=== PATIENT | male | born 1950 | race Caucasian/White ===

== ENCOUNTER 2016-11-20 21:52 | Emergency (ER) | payer MEDICARE ==
[2008-05-21 00:51] VITALS: BP 151/80
[~2016-11-20] VITALS: Ht 188 cm; Wt 100.0 kg
[~2016-11-20 21:52] MED LIST: ALBUTEROL0.83 MG/ML IH; CEFACLOR; CETIRIZINE10 MG PO; EPI EZ PEN0.5 MG/ML IM; GLUCOPHAGE1000 MG PO; GUAIFENESIN; INSULIN; JANUVIA50 MG PO; LANTUS SOLOS100 U/ML SC; LANTUS100 U/ML; LEVAQUIN 250MG250 MG PO; LOPERAMIDE HCL2 MG PO; METFORMIN1000 MG PO; METFORMIN500 MG PO; NORCO 325 MG-51 TAB PO; PENICILLIN250 MG PO; PHENERGAN 25 TA25 MG PO; PREDNISONE 5MG5 MG PO; PREDNISONE10 MG; PREDNISONE10 MG PO; PREDNISONE20 MG; PREDNISONE20 MG PO; PRILOSEC10 MG PO; PROAIR HFA; PULMICORT0.25 MG/2; PULMICORT0.5 MG/21 IH; PULMICORT180 MCG/A1 IH; SEREVENT; SEREVENT IH; SIMVASTATIN40 MG PO; SINGULAIR 110 MG/TAB PO; SINGULAIR10 MG PO; ULTRAM 50MG TAB50 MG PO; VENTOLIN0.09 MG IH; XOPENEX 1.1.25 MG/3 IH; XOPENEX1.25 MG/3 IH; ZITHROMAX Z PA250 MG PO; ZOCOR 40MG40 MG PO; ZYRTEC 10MG10 MG PO; [UNRECOGNIZED DRUG - OTHER]; [UNRECOGNIZED DRUG - OTHER] IH
[2016-11-20 21:56] VITALS: TEMP 98.2
[2016-11-20] MEDS ORDERED: ULTRAM 50MG TAB50 MG PO (22:59)
[2016-11-20 23:10] VITALS: BP 128/94; PULSE 92
== END 2016-11-20 23:15 | disposition home or self-care (01) ==
LOC: COL.ER 21:52
DX: S09.90XA Unspecified injury of head, initial encounter (principal); S86.911A Strain of unspecified muscle(s) and tendon(s) at lower leg level, right leg, initial encounter; M54.2 Cervicalgia; V43.62XA Car passenger injured in collision with other type car in traffic accident, initial encounter; Y92.410 Unspecified street and highway as the place of occurrence of the external cause; E11.9 Type 2 diabetes mellitus without complications; Z79.4 Long term (current) use of insulin; R40.2362 Coma scale, best motor response, obeys commands, at arrival to emergency department; R40.2142 Coma scale, eyes open, spontaneous, at arrival to emergency department; R40.2252 Coma scale, best verbal response, oriented, at arrival to emergency department

== ENCOUNTER → 2016-11-26 | Outpatient (CLI) | payer MEDICARE | LOC: SUN.DIA | DX: E11.65 Type 2 diabetes mellitus with hyperglycemia (principal); Z79.84 Long term (current) use of oral hypoglycemic drugs; Z79.4 Long term (current) use of insulin; Z68.28 Body mass index [BMI] 28.0-28.9, adult; E11.319 Type 2 diabetes mellitus with unspecified diabetic retinopathy without macular edema; Z71.3 Dietary counseling and surveillance ==

== ENCOUNTER → 2017-02-18 | Outpatient (CLI) | payer MEDICARE | LOC: SUN.DIA 11:00 | DX: E11.65 Type 2 diabetes mellitus with hyperglycemia (principal); E11.319 Type 2 diabetes mellitus with unspecified diabetic retinopathy without macular edema; Z79.4 Long term (current) use of insulin; Z71.3 Dietary counseling and surveillance ==

== ENCOUNTER → 2017-05-27 | Outpatient (CLI) | payer MEDICARE | LOC: SUN.DIA 09:57 | DX: E11.319 Type 2 diabetes mellitus with unspecified diabetic retinopathy without macular edema (principal); Z79.4 Long term (current) use of insulin; E78.5 Hyperlipidemia, unspecified; Z68.27 Body mass index [BMI] 27.0-27.9, adult; Z71.3 Dietary counseling and surveillance | CPT/HCPCS: G0108 ==

== ENCOUNTER → 2017-09-08 | Outpatient (CLI) | payer MEDICARE | LOC: SUN.DIA 08:42 | DX: Z01.89 Encounter for other specified special examinations (principal) ==

== ENCOUNTER → 2017-09-16 | Outpatient (CLI) | payer MEDICARE | LOC: SUN.DIA 09:46 | DX: E11.319 Type 2 diabetes mellitus with unspecified diabetic retinopathy without macular edema (principal); Z79.4 Long term (current) use of insulin; E78.5 Hyperlipidemia, unspecified; Z68.26 Body mass index [BMI] 26.0-26.9, adult; Z71.3 Dietary counseling and surveillance | CPT/HCPCS: G0108 ==

== ENCOUNTER 2017-10-04 21:34 | Emergency (ER) | payer MEDICARE ==
[2008-05-21 00:51] VITALS: BP 151/80
[~2017-10-04] VITALS: Ht 188 cm; Wt 90.9 kg
[2017-10-04 21:34] VITALS: TEMP 97.7
[2017-10-04 23:19] LABS: BASO % 0.5 % (0.0-2.0); EOS # 0.1 (0.0-0.7); GRAN # 6.2 (1.4-6.5); GRAN % 71.5 % (42.2-75.2); HEMATOCRIT 43.4 % (42.0-52.0); HEMOGLOBIN 14.4 g/dl (13.5-18.0); LYMPH # 1.7 (1.2-3.4); MEAN CELL VOLUME 86 fl (80.0-100.0); MEAN CORPUSCULAR HEMOGLOBIN 29 pg (27.0-31.0); MEAN CORPUSCULAR HGB CONC 33 g/dl (33.0-37.0); MEAN PLATELET VOLUME 10.5 fl (7.4-10.4); MONO # 0.7 (0.1-0.6); MONO % 7.4 % (1.7-9.3); PLATELET COUNT 206 K/mm3 (130-400); RED BLOOD COUNT 5.03 M/mm3 (4.20-5.60); WHITE BLOOD COUNT 8.7 K/mm3 (4.8-10.8)
[2017-10-04 23:32] LABS: ADJUSTED CALCIUM 9.1 mg/dL (8.4-10.2); ALANINE AMINOTRANSFERASE 40 U/L (21-72); ALBUMIN 3.7 gm/dL (3.5-5.0); ALKALINE PHOSPHATASE 51 U/L (50-136); ANION GAP 14 mmol/L (7-16); BILIRUBIN,TOTAL 0.6 mg/dL (0.0-1.0); BLOOD UREA NITROGEN 14 mg/dL (9-20); C-REACTIVE PROTEIN < 0.5 mg/dL (0.0-0.9); CALCIUM 8.9 mg/dL (8.4-10.2); CARBON DIOXIDE 21 mmol/L (22-30); CHLORIDE 106 mmol/L (98-107); CREATININE, serum 0.92 mg/dL (0.66-1.25); GLUCOSE 180 mg/dL (74-106); POTASSIUM 3.9 mmol/L (3.4-5.0); SODIUM 141 mmol/L (137-145); TOTAL PROTEIN 5.9 gm/dL (6.4-8.2)
[2017-10-05] VITALS: BP 113/81; PULSE 94
== END 2017-10-05 00:05 | disposition home or self-care (01) ==
LOC: COL.ER 21:34
PROVIDERS: Family Medicine
DX: M79.605 Pain in left leg (principal); G89.29 Other chronic pain; E11.9 Type 2 diabetes mellitus without complications; I10 Essential (primary) hypertension; Z79.4 Long term (current) use of insulin

== ENCOUNTER → 2017-12-15 | Outpatient (CLI) | payer MEDICARE | LOC: SUN.DIA 09:18 | DX: E11.319 Type 2 diabetes mellitus with unspecified diabetic retinopathy without macular edema (principal); Z79.4 Long term (current) use of insulin; E78.5 Hyperlipidemia, unspecified; Z68.26 Body mass index [BMI] 26.0-26.9, adult; Z71.3 Dietary counseling and surveillance | CPT/HCPCS: G0108 ==

== ENCOUNTER → 2018-03-19 | Outpatient (CLI) | payer MEDICARE | LOC: SUN.DIA 12:38 | DX: E11.319 Type 2 diabetes mellitus with unspecified diabetic retinopathy without macular edema (principal); Z79.4 Long term (current) use of insulin; E78.5 Hyperlipidemia, unspecified; Z68.27 Body mass index [BMI] 27.0-27.9, adult; Z71.3 Dietary counseling and surveillance | CPT/HCPCS: G0108 ==

== ENCOUNTER → 2018-12-14 | Outpatient (CLI) | payer MEDICARE | LOC: SUN.DIA 12:58 | DX: E11.9 Type 2 diabetes mellitus without complications (principal); H35.00 Unspecified background retinopathy; Z79.4 Long term (current) use of insulin; E78.5 Hyperlipidemia, unspecified | CPT/HCPCS: G0108 ==

== ENCOUNTER → 2019-06-14 | Outpatient (CLI) | payer MEDICARE | LOC: DIA.ED 11:52 | DX: E11.9 Type 2 diabetes mellitus without complications (principal); E78.5 Hyperlipidemia, unspecified; Z79.4 Long term (current) use of insulin | CPT/HCPCS: G0108 ==

== ENCOUNTER 2019-12-29 09:59 | Inpatient (IN) | payer MEDICARE ==
[2019-12-29] VITALS: BP 120/64; PULSE 94; TEMP 99
[~2019-12-29] VITALS: Ht 177.8 cm; Wt 89.2 kg
[2019-12-29 10:54] LABS: BASO % 0.3 % (0.0-2.0); EOS # 0.2 (0.0-0.7); EOS % 2.4 % (0-4.0); GRAN % 71.4 % (42.2-75.2); HEMATOCRIT 46.5 % (42.0-52.0); HEMOGLOBIN 15.5 g/dl (13.5-18.0); LYMPH # 0.6 (1.2-3.4); LYMPH % 8.4 % (20.0-51.0); MEAN CELL VOLUME 86 fl (80.0-100.0); MEAN CORPUSCULAR HEMOGLOBIN 29 pg (27.0-31.0); MEAN CORPUSCULAR HGB CONC 33 g/dl (33.0-37.0); MEAN PLATELET VOLUME 10.6 fl (7.4-10.4); MONO # 1.2 (0.1-0.6); MONO % 16.6 % (1.7-9.3); PLATELET COUNT 147 K/mm3 (130-400); REDCELL DISTRIBUTION WIDTH-CV 13.2 % (11.5-14.5)
[2019-12-29 11:01] LABS: CALCIUM 8.2 mg/dL (8.4-10.2); CREATININE, serum 0.84 (0.66-1.25); POTASSIUM 3.4 mmol/L (3.4-5.0); TOTAL PROTEIN 6.5 gm/dL (6.4-8.2)
[2019-12-29 11:38] LABS: COLLECTION METHOD CLEAN CATCH
[2019-12-29 11:46] LABS: MUCOUS Present /lpf; PH 5 (5-8); SQUAMOUS EPITHELIAL 0-2 /hpf; URINE APPEARANCE Hazy; URINE BACTERIA Rare /hpf; URINE BILIRUBIN Negative (NEGATIVE); URINE BLOOD Negative (NEGATIVE); URINE COLOR Yellow; URINE GLUCOSE 3+ (NEGATIVE); URINE KETONE 2+ (NEGATIVE); URINE LEUKOCYTE ESTERASE Negative (NEGATIVE); URINE NITRATE Negative (NEGATIVE); URINE PROTEIN(semi-quant) 1+ (NEGATIVE); URINE RBC 0-2 /hpf; URINE UROBILINOGEN Negative (NEGATIVE)
[2019-12-29 16:43] LABS: MAGNESIUM 1.9 mg/dL (1.6-2.3); PHOSPHOROUS 4.7 mg/dL (2.5-4.5)
[2019-12-29 17:49] VITALS: BP 136/55; PULSE 94; TEMP 99.4
[2019-12-29 18:16] VITALS: BP 136/55; PULSE 94; TEMP 99.4
[2019-12-29] MEDS ORDERED: PRINIVIL10 MG PO (19:59)
[2019-12-29] MEDS ORDERED: FARXIGA10 PO (19:59)
[2019-12-30 04:00] VITALS: BP 138/77; PULSE 78; TEMP 98.5
[2019-12-30 07:00] VITALS: BP 129/76; PULSE 88; TEMP 98.3
[2019-12-30 08:55] LABS: HEMATOCRIT 43.8 % (42.0-52.0); HEMOGLOBIN 14.4 g/dl (13.5-18.0); MEAN CELL VOLUME 87 fl (80.0-100.0); MEAN CORPUSCULAR HEMOGLOBIN 29 pg (27.0-31.0); MEAN CORPUSCULAR HGB CONC 33 g/dl (33.0-37.0); MEAN PLATELET VOLUME 10.9 fl (7.4-10.4); PLATELET COUNT 128 K/mm3 (130-400); RED BLOOD COUNT 5.04 M/mm3 (4.20-5.60); REDCELL DISTRIBUTION WIDTH-CV 13.4 % (11.5-14.5)
[2019-12-30 09:06] LABS: ALBUMIN 3.3 gm/dL (3.5-5.0); BILIRUBIN,TOTAL 0.8 mg/dL (0.0-1.0); CALCIUM 7.6 mg/dL (8.4-10.2); CREATININE, serum 0.71 (0.66-1.25); POTASSIUM 3.6 mmol/L (3.4-5.0); TOTAL PROTEIN 5.6 gm/dL (6.4-8.2)
[2019-12-30 09:52] LABS: BAND 12 % (0-10); LYMPHOCYTE 29 % (20.0-51.0); NEUTROPHILS 42 % (42.0-75.2); PLATELET ESTIMATE NORMAL (NORMAL)
[2019-12-30 12:13] VITALS: BP 131/70; PULSE 84; TEMP 98.9
[2019-12-30 16:16] VITALS: BP 140/84; PULSE 81; TEMP 98.3
[2019-12-30 20:00] VITALS: BP 144/77; PULSE 100; TEMP 98.1
[2019-12-30 23:56] VITALS: BP 152/94; PULSE 58; TEMP 98.2
[2019-12-31 02:35] VITALS: BP 187/93; PULSE 59
[2019-12-31 02:51] VITALS: BP 134/60; PULSE 87; TEMP 99.7
[2019-12-31 06:49] LABS: BASO % 0.3 % (0.0-2.0); EOS % 1.2 % (0-4.0); GRAN % 61.3 % (42.2-75.2); HEMATOCRIT 43.2 % (42.0-52.0); HEMOGLOBIN 14.2 g/dl (13.5-18.0); LYMPH # 0.7 (1.2-3.4); MEAN CELL VOLUME 88 fl (80.0-100.0); MEAN CORPUSCULAR HEMOGLOBIN 29 pg (27.0-31.0); MEAN CORPUSCULAR HGB CONC 33 g/dl (33.0-37.0); MONO # 0.5 (0.1-0.6); MONO % 15.9 % (1.7-9.3); PLATELET COUNT 137 K/mm3 (130-400); RED BLOOD COUNT 4.93 M/mm3 (4.20-5.60); REDCELL DISTRIBUTION WIDTH-CV 13.5 % (11.5-14.5)
[2019-12-31 07:01] LABS: CALCIUM 7.4 mg/dL (8.4-10.2); CREATININE, serum 0.68 (0.66-1.25); POTASSIUM 3.6 mmol/L (3.4-5.0)
[2019-12-31 07:56] VITALS: BP 129/56; PULSE 87; TEMP 98.4
[2019-12-31 11:41] VITALS: BP 139/67; PULSE 56; TEMP 98.5
[2019-12-31 16:11] VITALS: BP 150/68; PULSE 87; TEMP 98.3
[2019-12-31 20:38] VITALS: BP 157/74; PULSE 97; TEMP 99.8
[2020-01-01 01:21] VITALS: BP 148/55; PULSE 102; TEMP 102; TEMP 99.3
[2020-01-01 04:12] VITALS: BP 131/68; PULSE 95; TEMP 98.2
[2020-01-01 07:33] LABS: BASO % 0.1 % (0.0-2.0); EOS % 0.2 % (0-4.0); GRAN # 6.5 (1.4-6.5); GRAN % 80.5 % (42.2-75.2); HEMATOCRIT 40.2 % (42.0-52.0); HEMOGLOBIN 13.6 g/dl (13.5-18.0); LYMPH # 0.8 (1.2-3.4); LYMPH % 9.4 % (20.0-51.0); MEAN CELL VOLUME 85 fl (80.0-100.0); MEAN CORPUSCULAR HEMOGLOBIN 29 pg (27.0-31.0); MEAN CORPUSCULAR HGB CONC 34 g/dl (33.0-37.0); MEAN PLATELET VOLUME 10.4 fl (7.4-10.4); MONO # 0.8 (0.1-0.6); MONO % 9.4 % (1.7-9.3); PLATELET COUNT 131 K/mm3 (130-400); RED BLOOD COUNT 4.72 M/mm3 (4.20-5.60); REDCELL DISTRIBUTION WIDTH-CV 13.2 % (11.5-14.5)
[2020-01-01 07:59] LABS: CALCIUM 7.6 mg/dL (8.4-10.2); CREATININE, serum 0.64 (0.66-1.25); POTASSIUM 3.3 mmol/L (3.4-5.0)
[2020-01-01 09:03] VITALS: BP 154/83; PULSE 90; TEMP 97.7
[2020-01-01 13:05] VITALS: BP 156/82; PULSE 82; TEMP 97.7
[2020-01-01 16:59] VITALS: BP 144/75; PULSE 85; TEMP 97.7
[2020-01-01 21:12] VITALS: BP 124/65; PULSE 87; TEMP 98.5
[2020-01-02 05:00] VITALS: BP 144/76; PULSE 86; TEMP 98.4
[2020-01-02 06:39] LABS: CALCIUM 7.9 mg/dL (8.4-10.2); CREATININE, serum 0.57 (0.66-1.25); MAGNESIUM 1.7 mg/dL (1.6-2.3); POTASSIUM 3.3 mmol/L (3.4-5.0)
[2020-01-02 07:45] VITALS: BP 138/63; PULSE 80; TEMP 98.3
[2020-01-02] MEDS ORDERED: TAMIFLU 75MG75 MG PO (08:48)
[2020-01-02 12:09] VITALS: BP 154/91; PULSE 70; TEMP 98.3
== END 2020-01-02 12:25 | disposition home or self-care (01) | DRG 194 ==
LOC: COL.ER 09:59 → MEDICAL 13:57
PROVIDERS: Family Medicine; Physician Assistant; ADMIT Hospitalist
DX: J10.1 Influenza due to other identified influenza virus with other respiratory manifestations (principal); K56.7 Ileus, unspecified; E87.2 Acidosis; J45.909 Unspecified asthma, uncomplicated; E78.5 Hyperlipidemia, unspecified; E11.9 Type 2 diabetes mellitus without complications; E87.6 Hypokalemia; I10 Essential (primary) hypertension; G47.00 Insomnia, unspecified; R09.89 Other specified symptoms and signs involving the circulatory and respiratory systems; Z90.89 Acquired absence of other organs
CPT/HCPCS: OP; 99231-AI; 99232-AI; 99239; G0378; J1650; J1815; J2405; J7030; J7120

== ENCOUNTER 2021-05-09 17:55 | Emergency (ER) | payer MEDICARE ==
[~2021-05-09] VITALS: Ht 177.8 cm; Wt 95.5 kg
[~2021-05-09 17:55] MED LIST changes: +FARXIGA10 PO; +PRINIVIL10 MG PO; +TAMIFLU 75MG75 MG PO
[2021-05-09 17:57] VITALS: TEMP 98.3
[2021-05-09 18:19] LABS: BASO % 0.2 % (0.0-2.0); EOS % 0.6 % (0-4.0); GRAN # 4.7 (1.4-6.5); GRAN % 72.9 % (42.2-75.2); HEMATOCRIT 48.4 % (42.0-52.0); HEMOGLOBIN 16.3 g/dl (13.5-18.0); LYMPH # 0.8 (1.2-3.4); MEAN CELL VOLUME 85 fl (80.0-100.0); MEAN CORPUSCULAR HEMOGLOBIN 29 pg (27.0-31.0); MEAN CORPUSCULAR HGB CONC 34 g/dl (33.0-37.0); MEAN PLATELET VOLUME 10.2 fl (7.4-10.4); MONO # 0.8 (0.1-0.6); MONO % 12.8 % (1.7-9.3); PLATELET COUNT 200 K/mm3 (130-400); REDCELL DISTRIBUTION WIDTH-CV 13.6 % (11.5-14.5)
[2021-05-09 18:31] LABS: ALANINE AMINOTRANSFERASE 25 U/L (4-49); ALKALINE PHOSPHATASE 79 U/L (50-136); ANION GAP 9 mmol/L (7-16); AST,SGOT 40 U/L (15-37); BILIRUBIN,TOTAL 0.9 mg/dL (0.0-1.0); BLOOD UREA NITROGEN 16 mg/dL (9-20); CALCIUM 8.8 mg/dL (8.4-10.2); CARBON DIOXIDE 21 mmol/L (22-30); CHLORIDE 108 mmol/L (98-107); CREATININE, serum 0.93 (0.66-1.25); GLUCOSE 175 mg/dL (74-106); POTASSIUM 3.8 mmol/L (3.4-5.0); SODIUM 139 mmol/L (137-145)
[2021-05-09 18:53] LABS: TROPONIN-I < 0.012 ng/mL (0.000-0.035)
[2021-05-09] MEDS ORDERED: ZITHROMAX Z PA250 MG PO ×2 (20:38)
[2021-05-09] MEDS ORDERED: PREDNISONE20 MG PO (20:38)
[2021-05-09] MEDS ORDERED: DOXYCYCLINE 10100 MG PO (20:45)
[2021-05-09 20:49] VITALS: BP 114/97; PULSE 109
== END 2021-05-09 20:49 | disposition home or self-care (01) ==
LOC: COL.ER 17:55
PROVIDERS: Physician Assistant
DX: U07.1 COVID-19 (principal); E11.9 Type 2 diabetes mellitus without complications; I10 Essential (primary) hypertension; J45.909 Unspecified asthma, uncomplicated; E78.5 Hyperlipidemia, unspecified; Z79.51 Long term (current) use of inhaled steroids; Z79.4 Long term (current) use of insulin; Z79.899 Other long term (current) drug therapy
CPT/HCPCS: J0696; J1100; J7030

== ENCOUNTER 2022-03-08 19:35 | Inpatient (IN) | payer MEDICARE ==
[~2022-03-08] VITALS: Ht 182.9 cm; Wt 73.5 kg
[~2022-03-08 19:35] MED LIST changes: +DOXYCYCLINE 10100 MG PO
[2022-03-08 20:09] LABS: ARTERIAL BLD GAS O2 SATURATION 97.8 % (92-100); ARTERIAL BLD GAS TCO2 CT 22.1; ARTERIAL BLOOD GAS BASE EXCESS -4.6 (-2-2); ARTERIAL BLOOD GAS HCO3 20.8 meq/L (22-26); ARTERIAL BLOOD GAS PCO2 39.8 mmHg (35-45); ARTERIAL BLOOD GAS PO2 108.8 mmHg (80-100); ARTERIAL BLOOD GAS pH 7.34 (7.35-7.45)
[2022-03-08] MEDS ORDERED: FOSAMAX 70MG TA70 MG PO (20:40)
[2022-03-08] MEDS ORDERED: MOBIC15 MG PO (20:41)
[2022-03-08] MEDS ORDERED: PROVENTIL0.09 MG/A1 IH (20:42)
[2022-03-08] MEDS ORDERED: CITRUCEL POWDE850 GM PO (20:43)
[2022-03-08] MEDS ORDERED: EPIPEN 2-PAK1 MG/ML IM (20:44)
[2022-03-08] MEDS ORDERED: EPA FISH OIL1 SGL PO (20:45)
[2022-03-08] MEDS ORDERED: TRULICITY1.5 MG/0.5 SQ (20:46)
[2022-03-08 20:55] LABS: HEMATOCRIT 49.6 % (42.0-52.0); HEMOGLOBIN 16.7 g/dl (13.5-18.0); MEAN CELL VOLUME 85 fl (80.0-100.0); MEAN CORPUSCULAR HEMOGLOBIN 29 pg (27-31); MEAN CORPUSCULAR HGB CONC 34 g/dl (33.0-37.0); MEAN PLATELET VOLUME 11.3 fl (7.4-10.4); PLATELET COUNT 223 K/mm3 (130-400); RED BLOOD COUNT 5.86 M/mm3 (4.20-5.60); REDCELL DISTRIBUTION WIDTH-CV 13.2 % (11.5-14.5)
[2022-03-08 21:10] LABS: ALBUMIN 3.9 gm/dL (3.4-4.8); CALCIUM 9.1 mg/dL (8.4-10.2); CREATININE, serum 1.01 mg/dL (0.72-1.25); POTASSIUM 4.1 mmol/L (3.5-4.5)
[2022-03-08 21:50] LABS: BAND 3 % (0-10); BASOPHIL 1 % (0-2); EOSINOPHIL 5 % (0-4); LYMPHOCYTE 12 % (20.0-51.0); NEUTROPHILS 76 % (42.0-75.2); PLATELET ESTIMATE NORMAL (NORMAL)
[2022-03-09] MEDS ORDERED: TRULICITY4.5 MG/0.5 SQ (00:11)
[2022-03-09 04:07] VITALS: BP 151/83; PULSE 103; TEMP 97.7
--- NOTE | 2022-03-09 05:59 | NUR ---
Arrived to medical unit from ER around 0000. Alert and oriented, does have some confusion, but easily redirected. Denies pain and discomfort. Reports SOB is much better. On oxygen at 2 L/min via NC. LS wheezes in upper lobes. Telemetry in place. Did test positive for Rhino/enterovirus. Droplet precautions in place. Sputum sample obtained and sent to lab. Voices no questions, needs, or concerns at this time. In bed with call light within reach.
[2022-03-09 06:47] LABS: HEMATOCRIT 47.2 % (42.0-52.0); HEMOGLOBIN 15.4 g/dl (13.5-18.0); MEAN CELL VOLUME 86 fl (80.0-100.0); MEAN CORPUSCULAR HEMOGLOBIN 28 pg (27-31); MEAN CORPUSCULAR HGB CONC 33 g/dl (33.0-37.0); MEAN PLATELET VOLUME 11.4 fl (7.4-10.4); PLATELET COUNT 226 K/mm3 (130-400); RED BLOOD COUNT 5.47 M/mm3 (4.20-5.60); REDCELL DISTRIBUTION WIDTH-CV 13.1 % (11.5-14.5)
[2022-03-09 07:03] LABS: CREATININE, serum 0.99 mg/dL (0.72-1.25); POTASSIUM 4.7 mmol/L (3.5-4.5)
[2022-03-09 08:00] VITALS: BP 139/80; PULSE 105; TEMP 97.8
[2022-03-09 08:06] LABS: HYPOCHROMIA 1+; LYMPHOCYTE 8 % (20.0-51.0); NEUTROPHILS 91 % (42.0-75.2); PLATELET ESTIMATE NORMAL (NORMAL)
--- NOTE | 2022-03-09 11:25 | NUR ---
SW met with patient to complete intake. Patient states that he lives in [place] alone, sister Lauren [phone] is point of contact and patient states she is also appointed as his DPOA/HC. Patient provides that he does not utilize DME and is independent with ADL's. Patient provides that he does obtain HH services, but does not recall the name. SW will assist in researching patient's HH agency. PCP is Jd, pharmacy is [facility]. Patient plans to return to his home upon DC. SW will continue to follow. DC plan: home
[2022-03-09 12:06] VITALS: BP 125/61; PULSE 88; TEMP 98.2
--- NOTE | 2022-03-09 14:06 | NUR ---
PATIENT HAVING FREQUENT PRODUCTIVE COUGHING SPELLS. AMBULATES TO BATHROOM WITH STANDBY. ALERT AND ORIENTED. MULTIPULE OPEN/CRUSTED OVER LESIONS ON HIS SKIN. FACE, VIGIL, FOREHEAD, ARMS AND LEGS. LUNGS VERY DIMINISHED, WHEEZES AND FINE CRAKLES. NO COMPLAINTS OF PAIN.
[2022-03-09 16:39] VITALS: BP 102/66; BP 120/65; PULSE 80; PULSE 85; TEMP 98
--- NOTE | 2022-03-09 19:30 | NUR ---
PATIENT IS INSTRUCTION GIVEN. TOLERATING AMBULATION TO AND FROM BATHROOM WELL. COUGH TREATMENTS GIVEN. NO COMPLAINTS OF PAIN, NO CONCERNS AT END OF SHIFT.
[2022-03-09 21:02] VITALS: BP 130/73; PULSE 99; TEMP 97.9
--- NOTE | 2022-03-09 22:52 | NUR ---
Patient denies pain and discomfort. Continues on IV steroids per orders. LS expiratory wheezing throughout. Denies SOB and dyspnea. On oxygen at 2 L/min via NC. Continues to have productive cough, reports not as bad today compared to yesterday. Voices no questions, needs, or concerns. In bed with call light within reach. Had shower as requested.
[2022-03-10 00:09] VITALS: BP 119/68; PULSE 87; TEMP 98.5
[2022-03-10 04:26] VITALS: BP 115/71; PULSE 80; TEMP 97.5
--- NOTE | 2022-03-10 06:06 | NUR ---
Patient continues on oxygen at 2 L/min via NC. Denies SOB and dyspnea. Voices no questions, needs, or concerns at this time. In bed with call light within reach.
[2022-03-10 08:08] VITALS: BP 121/65; PULSE 84; TEMP 97.9
[2022-03-10] MEDS ORDERED: PROAIR HFA0.09 MG/AC IH (09:19)
[2022-03-10] MEDS ORDERED: PREDNISONE20 MG PO (09:22)
--- NOTE | 2022-03-10 09:48 | NUR ---
Scheduled medications given. Shift assessment performed. Patient currently requiring 2 L of O2 via nasal cannula. Productive cough noted. Patient on droplet precautions. Patient denies any pain, discomfort, or further needs at this time. VSS. Patient A&O. Call light in reach.
[2022-03-10 12:08] VITALS: BP 123/65; PULSE 76; TEMP 98.3
--- NOTE | 2022-03-10 15:23 | NUR ---
SW setup 3L O2 with [facility].
--- NOTE | 2022-03-10 16:25 | NUR ---
Patient deemed fit for discharge. IV DC'd, catheter intact, no signs of phlebitis. Discharge education/instructions given. All questions answered. Patient verbalized an understanding of the teaching. VSS. Patient A&O. Home O2 set up. Patient escorted from building via wheelchair, by [facility] Staff. [employer] transporting home. Patient denies any pain, discomfort, SOA, or further needs at thist time.
== END 2022-03-10 15:55 | disposition home or self-care (01) | DRG 189 ==
LOC: COL.ER 19:35 → MEDICAL 22:02
PROVIDERS: Emergency Medicine; Nurse Practitioner Family; ADMIT Internal Medicine
DX: J96.01 Acute respiratory failure with hypoxia (principal); J45.901 Unspecified asthma with (acute) exacerbation; E11.9 Type 2 diabetes mellitus without complications; I10 Essential (primary) hypertension; E78.5 Hyperlipidemia, unspecified; B97.89 Other viral agents as the cause of diseases classified elsewhere; B97.10 Unspecified enterovirus as the cause of diseases classified elsewhere; Z20.822 Contact with and (suspected) exposure to COVID-19; Z88.0 Allergy status to penicillin; Z79.84 Long term (current) use of oral hypoglycemic drugs; Z23 Encounter for immunization
CPT/HCPCS: 99223-AI; 99232-AI; 99239; J1815; J2920; J2930; J7030

== ENCOUNTER 2022-04-18 21:33 | Observation (INO) | payer MEDICARE ==
[~2022-04-18] VITALS: Ht 182.9 cm; Wt 71.4 kg
[~2022-04-18 21:33] MED LIST changes: +CITRUCEL POWDE850 GM PO; +EPA FISH OIL1 SGL PO; +EPIPEN 2-PAK1 MG/ML IM; +FOSAMAX 70MG TA70 MG PO; +MOBIC15 MG PO; +PROAIR HFA0.09 MG/AC IH; +PROVENTIL0.09 MG/A1 IH; +TRULICITY1.5 MG/0.5 SQ; +TRULICITY4.5 MG/0.5 SQ
[2022-04-18 21:49] LABS: BASO # 0.2 K/mm3 (0.0-0.2); BASO % 1.7 % (0.0-2.0); EOS # 1.8 K/mm3 (0.0-0.7); EOS % 14.1 % (0.0-4.0); GRAN % 55.7 % (42.2-75.2); HEMATOCRIT 49.4 % (42.0-52.0); HEMOGLOBIN 16.4 g/dl (13.5-18.0); LYMPH # 2.6 K/mm3 (1.2-3.4); LYMPH % 20.2 % (20.0-51.0); MEAN CELL VOLUME 84 fl (80.0-100.0); MEAN CORPUSCULAR HEMOGLOBIN 28 pg (27-31); MEAN CORPUSCULAR HGB CONC 33 g/dl (33.0-37.0); MEAN PLATELET VOLUME 10.6 fl (7.4-10.4); MONO % 8.1 % (1.7-9.3); PLATELET COUNT 271 K/mm3 (130-400); RED BLOOD COUNT 5.87 M/mm3 (4.20-5.60); REDCELL DISTRIBUTION WIDTH-CV 13.2 % (11.5-14.5)
[2022-04-18 22:06] LABS: ALBUMIN 4.2 gm/dL (3.4-4.8); CALCIUM 9.2 mg/dL (8.4-10.2); CREATININE, serum 1.17 mg/dL (0.72-1.25); POTASSIUM 4.1 mmol/L (3.5-4.5); TOTAL PROTEIN 7.3 gm/dL (6.2-8.1)
[2022-04-19] VITALS (7 sets, daily range): BP systolic 97–129; BP diastolic 65–76; PULSE 66–118; TEMP 97.5–98.5
--- NOTE | 2022-04-19 00:38 | NUR ---
PT BROUGHT UP FROM ED.
[2022-04-19] MEDS ORDERED: FOSAMAX 70MG TA70 MG PO (00:59)
[2022-04-19] MEDS ORDERED: XOPENEX 1.1.25 MG/3 IH (01:07)
[2022-04-19 02:45] LABS: HEMATOCRIT 47.1 % (42.0-52.0); HEMOGLOBIN 15.9 g/dl (13.5-18.0); MEAN CELL VOLUME 84 fl (80.0-100.0); MEAN CORPUSCULAR HEMOGLOBIN 28 pg (27-31); MEAN CORPUSCULAR HGB CONC 34 g/dl (33.0-37.0); MEAN PLATELET VOLUME 10.4 fl (7.4-10.4); PLATELET COUNT 261 K/mm3 (130-400); RED BLOOD COUNT 5.64 M/mm3 (4.20-5.60); REDCELL DISTRIBUTION WIDTH-CV 13.2 % (11.5-14.5)
--- NOTE | 2022-04-19 02:56 | NUR ---
Pt alert and oriented, resting queitly. Follows commands. Denies chest pain/SOB, though pt does breathe shallow and tachypneic. Inspiratory and expiratory wheezing noted. Lung sounds diminished. Abdomen soft. No BLE edema noted. 2+ radial and pedal pulses bilaterally. Shift assessment performed. Medications administered per orders and education provided. Admission assessment and admission intake completed. COVID and infectious disease assessments completed. Med rx reviewed and completed. Allergies confirmed. Noted multiple abrasions on the pt's face (forehead, nose, cheeks) as well as on his left great toe. No other significant skin issues noted. compliance monitor on. VS stable. Pt tachycardic in 110's. BP stable. Satting WNL on 2L NC. Nourishment provided. FSBS on arrival to unit 156. Pt tolerating PO. Maintaining AHA diet. Pt up to void with assistance. IV solumedrol administered and IV fluids started per orders. Pt does not report any questions at this time, will continue to monitor.
[2022-04-19 03:02] LABS: CALCIUM 8.8 mg/dL (8.4-10.2); CREATININE, serum 1.19 mg/dL (0.72-1.25); POTASSIUM 4.2 mmol/L (3.5-4.5)
[2022-04-19 03:28] LABS: BASOPHIL 2 % (0-2); LYMPHOCYTE 7 % (20.0-51.0); NEUTROPHILS 91 % (42.0-75.2); PLATELET ESTIMATE NORMAL (NORMAL)
--- NOTE | 2022-04-19 04:32 | NUR ---
No adverse events since admission. Pt remains alert and oriented. Denies chest pain. Respirations continue to be shallow and tachypneic. HR in the 110's. Pt did report a productive cough this morning and diaphoresis. Temperature was assessed and pt was afebrile. Spoke with respiratory in regards to a breathing treatment and they notified me that one had just been done approximately 1 hour ago. Pt resting back in bed now. Up to void with assistance. IV fluids and ordered IV solumedrol continue per orders. Pt tolerating PO. Pt does not report any questions at this time, will continue to monitor.
--- NOTE | 2022-04-19 09:03 | NUR ---
SW met with the patient to discuss discharge plan. The patient lives alone in [place]. He reports independence with ADLs and does not have any DME. The patient's PCP is Dr. Jaimie Vasquez and he receives his medications from [facility] The patient does not have a DPOA-HC in EMR, but he believes he has one completed and that he designated his sister, Destiny Hernandez (ph#[phone]). Destiny lives by [place]. The patient states that he is not , has no children, his parents are not alive. He states that he has two siblings: Destiny Hernandez and David Apodaca. The patient plans to return home upon discharge. He states that he will need transport home and is able to pay for a taxi. The patient recently discharged from the hospital on 03/10. He returned home with home oxygen from [facility]. He states that his PCP discontinued the oxygen and [facility] picked up the supplies. He is currently on 2 liters of oxygen. *Discharge plan: home, may need oxygen set up again upon discharge*
--- NOTE | 2022-04-19 19:07 | NUR ---
patient had acalm day, raised no complaints throughout the day, scheduled medication given, no side effects noted, still on 02 via nc, on n/saline. pt orient and alert, vss.
--- NOTE | 2022-04-20 01:21 | NUR ---
Pt alert and oriented, resting quietly. Denies pain. Productive cough noted with clear sputum. Pt currently on 1L NC, satting appropriately. Continuing to titrate as needed. Pt denies chest pain. Respirations tachypneic and shallow, but unlabored. Pt has insp/exp wheezing, lung sounds diminished. VS stable. HR tachycardic in the 110's. BP stable. Afebrile. Shift assessment performed. Medications administered per orders and education provided. Pt up to void with assistance. Continuing with IV fluids and IV solumedrol. Tolerating PO. FSBS 201 this evening. Pt does not report any questions at this time, will continue to monitor.
[2022-04-20 03:50] VITALS: BP 112/78; PULSE 90; TEMP 97.5
--- NOTE | 2022-04-20 04:47 | NUR ---
No adverse events overnight. Pt alert and oriented, follows commands. Currently on 1L NC. Around 0400 pt reported that he "needed help breathing" d/t his "coughing". Sat pt up and assessed O2 levels, which were WNL. Notified respiratory therapy who came and did a breathing treatment with the pt. Pt reports relief. IV fluids and IV solumedrol continued overnight per orders. Pt up to void adequately. Productive cough continued overnight. VS stable. Pt does not report any questions at this time, will continue to monitor.
[2022-04-20 06:17] LABS: HEMATOCRIT 41.8 % (42.0-52.0); HEMOGLOBIN 14.1 g/dl (13.5-18.0); MEAN CELL VOLUME 84 fl (80.0-100.0); MEAN CORPUSCULAR HEMOGLOBIN 28 pg (27-31); MEAN CORPUSCULAR HGB CONC 34 g/dl (33.0-37.0); MEAN PLATELET VOLUME 11.1 fl (7.4-10.4); PLATELET COUNT 207 K/mm3 (130-400); RED BLOOD COUNT 4.96 M/mm3 (4.20-5.60); REDCELL DISTRIBUTION WIDTH-CV 13.2 % (11.5-14.5)
[2022-04-20 06:27] LABS: CALCIUM 8.3 mg/dL (8.4-10.2); CREATININE, serum 0.78 mg/dL (0.72-1.25); POTASSIUM 4.4 mmol/L (3.5-4.5)
--- NOTE | 2022-04-20 06:34 | NUR ---
Lab called critical WBC count of 20.6. Notified environmental conflict manager provider, David Posadas of value. No new changes at this time, will continue to monitor.
[2022-04-20 07:07] LABS: BAND 4 % (0-10); LYMPHOCYTE 5 % (20.0-51.0); NEUTROPHILS 91 % (42.0-75.2)
[2022-04-20 07:08] LABS: PLATELET ESTIMATE NORMAL (NORMAL)
[2022-04-20 07:25] VITALS: BP 125/63; PULSE 89; TEMP 97.5
[2022-04-20] MEDS ORDERED: MEDROL 4MG DOSPA4 MG PO (09:23)
[2022-04-20] MEDS ORDERED: PULMICORT90 MCG/Act IH ×2 (09:25)
--- NOTE | 2022-04-20 09:41 | NUR ---
PATIENT VSS, ORIENT AND ALERT DUE MEDICATION GIVEN, DENIES ANY COMPLAINTS RAISED
[2022-04-20] MEDS ORDERED: RT ADVAIR 128 DISKUS IH (09:49)
--- NOTE | 2022-04-20 14:28 | NUR ---
pt dc from the unit, vss, 0rient and alert x4,iv removed tip intact, tele removed, discharge summary given to the pt and explained to, verbalize understanding, uber scheduled for pickle water pump operator as per the patient request.pt escorted out of the unit by the unit staff.
== END 2022-04-20 13:30 | disposition home or self-care (01) ==
LOC: COL.ER 21:33 → MEDICAL 22:40
PROVIDERS: Internal Medicine; Nurse Practitioner Family; Personal Emergency Response Attendant; ADMIT Internal Medicine
DX: J96.01 Acute respiratory failure with hypoxia (principal); J45.901 Unspecified asthma with (acute) exacerbation; R65.10 Systemic inflammatory response syndrome (SIRS) of non-infectious origin without acute organ dysfunction; E78.5 Hyperlipidemia, unspecified; E11.9 Type 2 diabetes mellitus without complications; I10 Essential (primary) hypertension; D72.19 Other eosinophilia; E87.2 Acidosis; G31.84 Mild cognitive impairment of uncertain or unknown etiology; Z79.84 Long term (current) use of oral hypoglycemic drugs; Z79.899 Other long term (current) drug therapy; Z20.822 Contact with and (suspected) exposure to COVID-19
CPT/HCPCS: A9284; G0378; J1650; J1815; J2920; J2930; J7030

== ENCOUNTER 2023-10-25 19:22 | Inpatient (IN) | payer MEDICARE ==
[~2023-10-25] VITALS: Ht 182.9 cm; Wt 71.6 kg
[2023-10-25] VITALS: BP 138/79; PULSE 100; TEMP 98.1
[~2023-10-25 19:22] MED LIST changes: +CITRUCEL WI2 GM/Dose PO; +MEDROL 4MG DOSPA4 MG PO; -PRINIVIL10 MG PO; +PRINIVIL5 MG PO; +PULMICORT180 MCG/Ac IH; +PULMICORT90 MCG/Act IH; +RT ADVAIR 128 DISKUS IH
[2023-10-25 19:48] LABS: BASO # 0.2 K/mm3 (0.0-0.2); BASO % 1.3 % (0.0-2.0); EOS # 1.8 K/mm3 (0.0-0.7); EOS % 14.5 % (0.0-4.0); GRAN # 6.7 K/mm3 (1.4-6.5); GRAN % 53.2 % (42.2-75.2); HEMOGLOBIN 17.1 g/dl (13.5-18.0); LYMPH % 23.5 % (20.0-51.0); MEAN CELL VOLUME 86 fl (80.0-100.0); MEAN CORPUSCULAR HEMOGLOBIN 28 pg (27-31); MEAN CORPUSCULAR HGB CONC 32 g/dl (33.0-37.0); MEAN PLATELET VOLUME 10.5 fl (7.4-10.4); MONO # 0.9 K/mm3 (0.1-0.6); MONO % 7.2 % (1.7-9.3); PLATELET COUNT 293 K/mm3 (130-400); RED BLOOD COUNT 6.11 M/mm3 (4.20-5.60); REDCELL DISTRIBUTION WIDTH-CV 13.4 % (11.5-14.5)
[2023-10-25 19:50] LABS: HEMATOCRIT 52.7 % (42.0-52.0)
[2023-10-25 20:04] LABS: ALBUMIN 4.3 gm/dL (3.4-4.8); CALCIUM 9.5 mg/dL (8.4-10.2); CREATININE, serum 1.08 mg/dL (0.72-1.25); POTASSIUM 4.3 mmol/L (3.5-4.5); TOTAL PROTEIN 7.7 gm/dL (6.2-8.1)
--- NOTE | 2023-10-25 22:10 | NUR ---
Report received from ED nurse at this time.
--- NOTE | 2023-10-25 22:40 | NUR ---
Patient admitted to room 352 via wheelchair. Oriented to room/policy.
[2023-10-25 23:04] VITALS: BP 138/79; PULSE 100; TEMP 98.1
[2023-10-25 23:10] VITALS: BP 138/79; PULSE 100; TEMP 98.1
[2023-10-26] VITALS (12 sets, daily range): BP systolic 104–143; BP diastolic 68–90; PULSE 75–100; TEMP 97.4–98.1
--- NOTE | 2023-10-26 05:38 | NUR ---
Patient had an uneventful night. Currently on O2@2L/NC with adequate spo2. VS remained stable. NS@75ml/hr to left upper arm infusing without difficulty. Voiding without difficulty. TELE reporting SR. Denies current questions/concerns. Call light in reach. Will monitor.
--- NOTE | 2023-10-26 06:53 | NUR ---
O2 decreased to 1L/NC due to adequate SpO2. Attempting to wean from O2 at this time. Will pass on to dayshift. Also informed of need to contact [facility] for updated med list.
[2023-10-26 07:20] LABS: BASO % 0.4 % (0.0-2.0); EOS % 0.1 % (0.0-4.0); GRAN # 6.3 K/mm3 (1.4-6.5); GRAN % 87.9 % (42.2-75.2); HEMATOCRIT 42.6 % (42.0-52.0); LYMPH # 0.6 K/mm3 (1.2-3.4); LYMPH % 8.9 % (20.0-51.0); MEAN CELL VOLUME 83 fl (80.0-100.0); MEAN CORPUSCULAR HEMOGLOBIN 28 pg (27-31); MEAN CORPUSCULAR HGB CONC 34 g/dl (33.0-37.0); MEAN PLATELET VOLUME 10.5 fl (7.4-10.4); MONO # 0.2 K/mm3 (0.1-0.6); MONO % 2.3 % (1.7-9.3); PLATELET COUNT 222 K/mm3 (130-400); RED BLOOD COUNT 5.15 M/mm3 (4.20-5.60); REDCELL DISTRIBUTION WIDTH-CV 13.2 % (11.5-14.5)
[2023-10-26 07:31] LABS: HEMOGLOBIN 14.4 g/dl (13.5-18.0)
[2023-10-26 07:47] LABS: CALCIUM 8.7 mg/dL (8.4-10.2); CREATININE, serum 0.98 mg/dL (0.72-1.25); MAGNESIUM 1.9 mg/dL (1.6-2.6); PHOSPHOROUS 3.9 mg/dL (2.3-4.7); POTASSIUM 4.4 mmol/L (3.5-4.5)
--- NOTE | 2023-10-26 08:00 | NUR ---
SHIFT ASSESSMENT COMPLETE. VSS. PATIENT RESTING IN BED WAITING FOR BREAKFAST. PATIENT PLACED ON RM AIR AND STATING AT 93%. ALL MORNING MEDS GIVEN PER ORDERS. PATIENT HAS NO REQUEST OR COMPLAINTS AT THIS TIME.
[2023-10-26] MEDS ORDERED: MOBIC15 MG PO (16:09)
--- NOTE | 2023-10-26 19:34 | NUR ---
Patient up to shower at this time. IV wrapped with plastic.
--- NOTE | 2023-10-26 20:00 | NUR ---
Assessment complete. A&Ox4. Denies pain/nausea/shortness of breath. VS stable-blood pressure 100s/50s-holding lisinopril-will re-evaluate at 0000 vitals. Patient has been up to shower and tolerated well. Left upper arm 20g flushes without difficulty. No s/s of infiltration noted. Blood sugar 232-S/S given. Plan of care discussed for this shift to include meds/pain control/calling for questions/concerns. Call light in reach. Will monitor.
--- NOTE | 2023-10-26 20:52 | NUR ---
Patient called stating he was bleeding from his penis. After examination noted to have a small cut to the posterior side of head of penis. States he was just using the urinal and felt a burn and then saw blood. Currently not actively bleeding. Will monitor.
[2023-10-27 00:07] VITALS: BP_SYST 143
--- NOTE | 2023-10-27 00:30 | NUR ---
Patient resting in bed watching TV. States he is having a hard time sleeping but does not want any intervention. Instructed to call for questions/concerns. Will monitor.
[2023-10-27 03:31] VITALS: BP 121/65; PULSE 79; TEMP 97.7
[2023-10-27 03:38] VITALS: BP_SYST 121
--- NOTE | 2023-10-27 05:34 | NUR ---
Patient had an uneventful night. Denied pain/nausea/shortness of breath. Has been on RA. VS stable. Tolerating PO/voiding without difficulty. Denies current needs. Call light in reach. Will monitor.
[2023-10-27 06:33] LABS: MEAN CELL VOLUME 82 fl (80.0-100.0); MEAN CORPUSCULAR HEMOGLOBIN 28 pg (27-31); MEAN CORPUSCULAR HGB CONC 34 g/dl (33.0-37.0); MEAN PLATELET VOLUME 10.9 fl (7.4-10.4); PLATELET COUNT 224 K/mm3 (130-400); RED BLOOD COUNT 5.01 M/mm3 (4.20-5.60); REDCELL DISTRIBUTION WIDTH-CV 13.3 % (11.5-14.5)
[2023-10-27 06:44] LABS: CALCIUM 8.7 mg/dL (8.4-10.2); CREATININE, serum 1.05 mg/dL (0.72-1.25); POTASSIUM 4.3 mmol/L (3.5-4.5)
[2023-10-27 07:04] LABS: BAND 8 % (0-10); LYMPHOCYTE 1 % (20.0-51.0); NEUTROPHILS 90 % (42.0-75.2); PLATELET ESTIMATE NORMAL (NORMAL)
[2023-10-27 07:13] VITALS: BP 141/81; PULSE 87; TEMP 97.5
--- NOTE | 2023-10-27 08:00 | NUR ---
Patient is resgin in bed, awaiting to be discharge. Assessment completed, denies any pain or discomfort. No further needs at this time. Call light within reach.
[2023-10-27] MEDS ORDERED: PREDNISONE20 MG PO (08:39)
[2023-10-27 09:00] VITALS: BP_SYST 141
--- NOTE | 2023-10-27 10:08 | NUR ---
Patient was provided with discharge information, all questions answered. IV access was discontinued.
--- NOTE | 2023-10-27 13:21 | NUR ---
reworker was notified patient needs transportation at discharge. SW met with patient to discuss discharge planning. Patient lives in [place] by himself. Best point of contact is patient's sister, Dayna, P# [phone]. Patient reports that is his only family member and she lives in [facility] and he does not have any friends that drive. PCP is Dr. Elias, pharmacy is [facility]. Patient reports some of his medications were too expensive so his primary care switched them. Patient reports he has a DPOA-HC and living will with his sister, Dayna, as the primary agent. Patient has a cane that he utilizes sometimes. Patient is independent with ADLS at home. Patient does not have a form of transportation and needs assistance with getting a ride home. Patient has no concerns with returning home at time of discharge. LAURI established a ride with [employer] for the patient and notified the nurse. Discharge Plan: Home
== END 2023-10-27 10:00 | disposition home or self-care (01) | DRG 203 ==
LOC: COL.ER 19:22 → MEDICAL 21:09
PROVIDERS: Internal Medicine; Nurse Practitioner Family; Personal Emergency Response Attendant; ADMIT Internal Medicine
DX: J45.909 Unspecified asthma, uncomplicated (principal); E11.9 Type 2 diabetes mellitus without complications; R09.02 Hypoxemia; I10 Essential (primary) hypertension; E78.5 Hyperlipidemia, unspecified; M81.0 Age-related osteoporosis without current pathological fracture; G89.29 Other chronic pain; Z90.49 Acquired absence of other specified parts of digestive tract; Z79.899 Other long term (current) drug therapy; Z88.1 Allergy status to other antibiotic agents; Z88.0 Allergy status to penicillin; Z88.8 Allergy status to other drugs, medicaments and biological substances; Z79.84 Long term (current) use of oral hypoglycemic drugs; Z23 Encounter for immunization
CPT/HCPCS: J1100; J1815; J2930; J7030; J7512